=== PATIENT | female | born 1970 | race Caucasian/White ===

== ENCOUNTER → 2018-04-04 | Outpatient (CLI) | payer OTHER | END | disposition home or self-care (01) | LOC: LABWHC1 07:19 | PROVIDERS: ATTEND Internal Medicine Cardiovascular Disease | DX: E03.9 Hypothyroidism, unspecified (principal) | CPT/HCPCS: 36415; 84443 ==

== ENCOUNTER 2020-10-31 06:22 | Day surgery (SDC) | payer OTHER ==
[2020-10-29 14:58] VITALS: BMI 25.1
[~2020-10-31 06:22] MED LIST: DEXAMETHASONE SOD PHOSPHATE 4 MG/ML 1 ML VIAL IV PRN; LACTATED RINGERS 1,000 ML IV SCH; MIDAZOLAM 2 MG/2 ML VIAL IV PRN; ONDANSETRON 4 MG/2 ML VIAL IVP PRN; SCOPOLAMINE 1.5MG/72HR PATCH TRANSDERM PRN
[2020-10-31] MEDS ORDERED: LIDOCAINE 1% (10MG/ML) FOR IV START INTRADERMA ONE (06:54)
[2020-10-31] MEDS ORDERED: LIDOCAINE 1% INJ 10MG/ML (20 ML MDV) ONE (07:30)
[2020-10-31] MEDS ORDERED: ROPIVACAINE 5 MG/ML 30 ML VIAL ONE (07:30)
[2020-10-31] MEDS ORDERED: fentaNYL (PF) 50 MCG/ML 2 ML AMP ONE (07:30)
[2020-10-31] MEDS ORDERED: PROPOFOL 10 MG/ML 20 ML VIAL IV ONE (07:30)
[2020-10-31] MEDS ORDERED: MIDAZOLAM 2 MG/2 ML VIAL ONE (07:30)
--- NOTE | 2020-10-31 08:05 | P.ANPRN ---
Procedure Note - Anesthesia - Nerve Block Performed Right Popliteal Single Time Out Performed: Yes ([id number]) Date of Procedure: 10/31/20 Procedure Start Time: 07:14 Procedure Stop Time: 07:17 Location of Patient: PreOp Indication: Acute Post-Operative Pain, Requested by Surgeon Specifically requested for management of pain by DrJavad: Jason Griggs Sedation Type: Sedate with meaningful contact maintained Preparation: Sterile Prep Position: Left Lateral Catheter: None Needle Types: Pajunk Needle Gauge: 21 Ultrasound used to visualize needle placement: Yes Ultrasound used to observe medication spread: Yes Injectate: 0.5% Ropivacaine (see comment for volume) (20cc) Blood Aspirated: No Pain Paresthesia on Injection Noted: No Resistance on Injection: Normal Image Stored and Saved: Yes Events: Uneventful and Well Tolerated Right Adductor Canal Single Time Out Performed: Yes ([id number]) Date of Procedure: 10/31/20 Procedure Start Time: 07:18 Procedure Stop Time: 07:22 Location of Patient: PreOp Indication: Acute Post-Operative Pain, Requested by Surgeon Specifically requested for management of pain by DrJavad: Jason Griggs Sedation Type: Sedate with meaningful contact maintained Preparation: Sterile Prep Position: Supine Catheter: None Needle Types: Pajunk Needle Gauge: 21 Ultrasound used to visualize needle placement: Yes Ultrasound used to observe medication spread: Yes Injectate: 0.5% Ropivacaine (see comment for volume) (20cc) Blood Aspirated: No Pain Paresthesia on Injection Noted: No Resistance on Injection: Normal Image Stored and Saved: Yes Events: Uneventful and Well Tolerated
[2020-10-31] MEDS: HYDROmorphone 0.5 MG/0.5 ML SYRINGE IVP PRN ×4 (08:30→08:36)
[2020-10-31 08:35] VITALS: TEMP 97.6
[2020-10-31] MEDS ORDERED: KETOROLAC 15 MG/ML 1 ML VIAL IVP ONE ×2 (08:36→09:05)
[2020-10-31] MEDS ORDERED: LACTATED RINGERS 1,000 ML IV ONE ×2 (08:47→10:04)
[2020-10-31] MEDS ORDERED: ONDANSETRON 4 MG/2 ML VIAL IVP ONE (09:00)
[2020-10-31] MEDS ORDERED: PROMETHAZINE INJ 6.25 MG in SODIUM CHLORIDE 0.9% 50 ML IVPB ONE (10:30)
[2020-10-31 10:51] VITALS: RESP 16
[2020-10-31 11:38] VITALS: BP 100/64; PULSE 72
--- NOTE | 2020-11-04 21:10 | OP ---
OPERATIVE REPORT DATE OF SURGERY: 10/31/2020 PREOPERATIVE DIAGNOSIS: Right ankle instability. POSTOPERATIVE DIAGNOSIS: Right ankle instability. PROCEDURE: Secondary repair of right lateral ankle ligaments. SURGEON: Jason Griggs DPM ANESTHESIA: General with preoperative nerve block. HEMOSTASIS: Right mid calf tourniquet at 250 mmHg. ESTIMATED BLOOD LOSS: Minimal. MATERIALS: One Arthrex internal brace and two FiberTak anchors. INJECTABLES: None. SPECIMENS: None. COMPLICATIONS: None. OPERATIVE COURSE: Prior to the patient being brought to the operating room, Anesthesia administered a nerve block in the right lower extremity under ultrasonic guidance and mild sedation. The patient was brought into the operating room and placed on the table in supine position. Timeout was taken to confirm correct patient identifiers, correct site of surgery and correct procedure. When the room was in agreement, the patient was placed under general anesthetic. A well-padded tourniquet was placed on the right midcalf, staying 3 to 4 inches distal to the fibular neck, and the right leg was prepped and draped in the usual manner. The right leg was exsanguinated, the tourniquet inflated to 250 mmHg. Attention was directed over the anterior lateral ankle. A small curved incision was made just anterior to the lateral malleolus. It was deepened down to the subcutaneous tissue, careful to identify, avoid and retract any neurovascular structures and cauterize any bleeding vessels. Blunt dissection was continued down to the level of the ankle joint capsule. The capsule and ligamentous structures were incised off of the anterior surface of the lateral malleolus. A rongeur was used to remove the cortical bone on the anterior surface of the lateral malleolus to facilitate tissue re-adhesion. Next the talar body just anterior to the trochlear surface was palpated. A small stab incision was made through the capsule and then a drill hole was made utilizing standard technique into the talar body. The hole was tapped and the 4.75 anchor was inserted to proper depth. Then the punch out crew member was removed. Utilizing the same-size drill bit, the 3.5 mm anchor hole was then drilled in the lateral malleolus, and then the airline transport pilot holes for the FiberTak anchors were made, one superior and one inferior to the 3.5 mm anchor hole. The FiberTaks were inserted and then tensioned to lock them in place. The wound was irrigated with antibiotic saline. The distal capsule and ligament structures were captured with the suture from the FiberTaks, and with the ankle held in maximum dorsiflexion and eversion, the suture was tied to bring the ligamentous structures back down to the lateral malleolus. Once that was completed, the suture tails from the 4.75 anchor were then fed into the 3.5 anchor which was then aligned with the hole drilled in the lateral malleolus. With the ankle in neutral inversion and eversion and mild gravity equinus, the anchor was inserted with the suture tails utilizing proper tensioning techniques, and then the anchor inserted into the drill hole to proper depth. At that point, the ankle was tested for stability, and anterior drawer and inversion stress were negative. The wound was again irrigated with antibiotic saline. The suture from the FiberTaks was used to sew the periosteal flap over the repair site in a [id number] fashion. Subcutaneous closure was done with 4-0 Monocryl. Skin closure was done with 3-0 Stratafix in a running subcuticular manner. Dermaglue was applied and allowed to dry, then covered with Steri- Strips and then nonadherent gauze and a dry sterile dressing. The tourniquet was released and capillary refill returned to all digits on the right foot. The patient was placed in a well-padded, well-molded plaster posterior mold sugar-tong splint with the ankle held in neutral position. Anesthesia was reversed, and the LMA was removed. The patient was taken to Recovery with vital signs stable. JOHNNY / ONURN: [id number] / HOLDEN
== END 2020-10-31 12:16 | disposition home or self-care (01) ==
LOC: OR 06:22
PROVIDERS: ATTEND Podiatrist
DX: M25.371 Other instability, right ankle (principal); H91.90 Unspecified hearing loss, unspecified ear; Z79.3 Long term (current) use of hormonal contraceptives; Z97.3 Presence of spectacles and contact lenses; Z82.49 Family history of ischemic heart disease and other diseases of the circulatory system
CPT/HCPCS: 27698; 64447; 81025; 64450; 76942; C1713; J2250; J1100; J2550; J0690; J2405; J2001; J3010; J2795; J1885; J2704; J1170; 64445

== ENCOUNTER → 2021-03-02 | Outpatient (CLI) | payer OTHER ==
--- NOTE | 2021-03-03 07:02 | CT ---
EXAMINATION TYPE: CT abdomen pelvis wo con DATE OF EXAM: 03/02/2021 HISTORY: Right flank pain and microscopic hematuria. CT DLP: 366.6 mGycm. Automated Exposure Control for Dose Reduction was Utilized. TECHNIQUE: CT scan of the abdomen and pelvis is performed without oral or IV contrast. COMPARISON: NONE FINDINGS: Within the limitations of a non-contrast study, the following observations are made. LUNG BASES: Mild posterior bibasilar linear scarring and/or atelectasis. LIVER/GB: No significant abnormality is appreciated. PANCREAS: No significant abnormality is seen. SPLEEN: No significant abnormality is seen. ADRENALS: No significant abnormality is seen. KIDNEYS: No renal stones or hydronephrosis is present in the right kidney. Left kidney has 2-3 tiny a djacent calculi anteriorly mid to lower pole level series 3 image 56 all measuring under 3 mm in size . BOWEL: Normal appearing appendix from cecum. No suspicious small or large bowel dilatation. GENITAL ORGANS: Anteverted uterus. Symmetric appearing ovaries. Scattered bilateral pelvic phlebolith s LYMPH NODES: No greater than 1cm abdominal or pelvic lymph nodes are appreciated. OSSEOUS STRUCTURES: Moderate to severe disc space narrowing with vacuum disc phenomenon L4-L5 and L5- S1 levels. Mild to moderate narrowing and spurring in both hip joints. OTHER: No significant additional abnormality is seen. IMPRESSION: There is cluster of 3 nonobstructing calculi measuring under 3 mm in size in the left kid hernán. No hydronephrosis or obstructing renal calculi bilaterally.
== END | disposition home or self-care (01) ==
LOC: RADCTMAIN 17:20
PROVIDERS: ATTEND Urology
DX: N20.0 Calculus of kidney (principal)
CPT/HCPCS: 74176

== ENCOUNTER → 2021-07-21 | Outpatient (CLI) | payer OTHER ==
--- NOTE | 2021-07-22 10:45 | MM ---
Reason for exam: screening (asymptomatic). Last mammogram was performed 4 years and 1 month ago. History: Patient is nulliparous. Taking hormonal contraceptives for 4 years beginning at age 46. Physical Findings: A clinical breast exam by your physician is recommended on an annual basis and results should be correlated with mammographic findings. MG 3D Screening Mammo W/Cad Bilateral CC and MLO view(s) were taken. Prior study comparison: June 11, 2017, mammogram, performed at [facility]. September 05, 2013, mammogram, performed at [facility]. The breast tissue is heterogeneously dense. This may lower the sensitivity of mammography. There is no discrete abnormality. No significant changes when compared with prior studies. ASSESSMENT: Negative, BI-RAD 1 RECOMMENDATION: Routine screening mammogram of both breasts in 1 year.
== END | disposition home or self-care (01) ==
LOC: RADMAMWWP 06:56
PROVIDERS: ATTEND Obstetrics & Gynecology
DX: Z12.31 Encounter for screening mammogram for malignant neoplasm of breast (principal)
CPT/HCPCS: 77063; 77067

== ENCOUNTER → 2023-03-01 | Outpatient (CLI) | payer OTHER ==
--- NOTE | 2023-03-01 18:09 | BD ---
EXAMINATION TYPE: Axial Bone Density DATE OF EXAM: 03/01/2023 CLINICAL HISTORY: 52 years old Female. ICD-10 CODE: L12994 OSTEOPENIA OF RIGHT HIP Height: 67.5 Weight: 181 FRAX RISK QUESTIONS: Family History (Parent hip fracture): no History of Fracture in Adulthood: no Secondary Osteoporosis: no RISK FACTORS HISTORY OF: Surgery to Spine: yes, laminectomy 1993 When: 1993 Family History of Osteoporosis: no Active: yes Diet low in dairy products/other sources of calcium: no Postmenopausal woman: no If Premenopausal, do you have irregular periods: no Lost more than 2 inches in height since high school: no Frequent falls: no MEDICATIONS: Additional Medications: yes control. Migraine meds EXAM MEASUREMENTS: Bone mineral densitometry was performed using the [employer] System. Bone mineral density as measured about the Lumbar spine is: ----- L1-L4(G/cm2): 1.506 T Score Values are as follows: ----- L1: 1.9 ----- L2: 2.3 ----- L3: 3.2 ----- L4: 3.3 ----- L1-L4: 2.7 Z Score Values are as follows: ----- L1: 1.9 ----- L2: 2.3 ----- L3: 3.2 ----- L4: 3.3 ----- L1-L4: 2.7 Bone mineral density baseline Bone mineral density about the R hip (g/cm2): 1.155 Bone mineral density about the L hip (g/cm2): 1.202 T Score values are as follows: -----R Neck: -0.4 -----L Neck: 0.2 -----R Total: 1.2 -----L Total: 1.5 Z Score values are as follows: -----R Neck: 0.2 -----L Neck: 0.7 -----R Total: 1.3 -----L Total: 1.7 Bone mineral density baseline FRAX%s: The graph provided illustrates a 4.3% chance for a major osteoporotic fx and a 0.1% chance fo r the hips probability for fx in 10 years time. IMPRESSION: Normal (Values between +1 and -1 indicate normal bone mass). Consider repeating this study in 5 year s or sooner if there is some new clinical indication. NOTE: T-SCORE=SD OF THE YOUNG ADULT MEAN.
--- NOTE | 2023-03-02 07:46 | MM ---
Reason for Exam: Screening (asymptomatic). Last mammogram was performed 1 year(s) and 8 month(s) ago. Patient History: Menarche at age 13. Patient has no children. Perimenopausal. Currently using Hormonal Contraceptives, beginning at age 46 for 4 years. Risk Values: Anya 5 year model risk: 1.2%. NCI Lifetime model risk: 9.6%. Prior Study Comparison: 09/05/2013 Screening Mammogram, [facility]. 06/11/2017 Screening Mammogram, [facility]. 07/21/2021 Bilateral Screening Mammogram, [facility]. Tissue Density: The breast tissue is heterogeneously dense. This may lower the sensitivity of mammography. Findings: Analyzed By CAD. There is no suspicious group of microcalcifications or new suspicious mass in either breast. Overall Assessment: Negative, BI-RAD 1 Management: Screening Mammogram of both breasts in 1 year. A clinical breast exam by your physician is recommended on an annual basis and results should be correlated with mammographic findings. Electronically signed and approved by: Richar Suarez D.O.
== END | disposition home or self-care (01) ==
LOC: RADMAMWWP 15:55
PROVIDERS: ATTEND Internal Medicine
DX: Z12.31 Encounter for screening mammogram for malignant neoplasm of breast (principal); Z13.6 Encounter for screening for cardiovascular disorders; M85.851 Other specified disorders of bone density and structure, right thigh
CPT/HCPCS: 77063; 77067; 77080